=== PATIENT | female | born 1960 | race Caucasian/White ===

== ENCOUNTER 2018-09-17 14:16 | Emergency (ER) | payer BC, OTHER ==
[2018-09-17 14:34] VITALS: BP 138/86; PULSE 77; TEMP 97.9; BMI 30.9
--- NOTE | 2018-09-17 14:43 | PDOC ---
History of Present Illness - General History Source: Patient Exam Limitations: No Limitations - History of Present Illness Initial Comments: 09/17/18 14:55 The patient is a 57 year old female, with prior scaphoid injury in the past ( no surgery) and PMH with depression, who presents to the emergency department with right thumb pain that began 5 days ago. The patient states she rolled over a rock and landed on her right knee with her right hand out. The patient reports thumb pain progressively worsen making it difficult to sleep at night, no relief with Tylenol. The patient denies LOC, shoulder pain and knee pain. The patient denies numbness, bleeding or tingling. Allergies: NKA Past surgical history: abdominal and appendectomy Social history: Former smoker but drinks alcohol socially. PCP: Rakesh Huber <Wisam Riojas - Last Filed: 09/17/18 14:55> <Hellen Wesley - Last Filed: 09/17/18 15:26> - General Chief Complaint: Injury Stated Complaint: RIGHT THUMB PAIN Time Seen by Provider: 09/17/18 14:20 Past History <Wisam Riojas - Last Filed: 09/17/18 14:55> - Past Medical History COPD: No Psychiatric Problems: Yes (DEPRESSION) - Surgical History Abdominal Surgery: Yes Appendectomy: Yes (CHILDHOOD) - Suicide/Smoking/Psychosocial Hx Smoking History: Former smoker Have you smoked in the past 12 months: No Number of Cigarettes Smoked Daily: 0 Information on smoking cessation initiated: Yes Hx Alcohol Use: Yes (SOCIAL) Drug/Substance Use Hx: No Substance Use Type: None <Hellen Wesley - Last Filed: 09/17/18 15:26> - Past Medical History Allergies/Adverse Reactions: Allergies Allergy/AdvReac Type Severity Reaction Status Date / Time No Known Allergies Allergy Verified 09/17/18 14:17 Home Medications: Ambulatory Orders Acetaminophen [Tylenol Extra Strength] 1,000 mg PO TID PRN 09/17/18 Fluoxetine HCl [Prozac] 20 mg PO DAILY 09/17/18 Meloxicam 15 mg PO DAILY PRN 09/17/18 Review of Systems - Review of Systems Able to Perform ROS?: Yes Comments:: 09/17/18 14:55 GENERAL/CONSTITUTIONAL: No fever or chills. No weakness. HEAD, EYES, EARS, NOSE AND THROAT: No change in vision. No ear pain or discharge. No sore throat. CARDIOVASCULAR: No chest pain or shortness of breath. RESPIRATORY: No cough, wheezing, or hemoptysis. GASTROINTESTINAL: No nausea, vomiting, diarrhea or constipation. GENITOURINARY: No dysuria, frequency, or change in urination. MUSCULOSKELETAL:+Right thumb pain. No neck or back pain. SKIN: No rash NEUROLOGIC: No headache, vertigo, loss of consciousness, or change in strength/ sensation. ENDOCRINE: No increased thirst. No abnormal weight change. HEMATOLOGIC/LYMPHATIC: No anemia, easy bleeding, or history of blood clots. ALLERGIC/IMMUNOLOGIC: No hives or skin allergy. <Wisam Riojas - Last Filed: 09/17/18 14:55> *Physical Exam - Vital Signs Last Vital Signs Temp Pulse Resp BP Pulse Ox 97.9 F 77 16 138/86 95 09/17/18 14:17 09/17/18 14:17 09/17/18 14:17 09/17/18 14:17 09/17/18 14:17 - Physical Exam Comments: 09/17/18 14:57 GENERAL: Awake, alert, and fully oriented, in no acute distress HEAD: Atraumatic. No signs of trauma LUNGS: Breath sounds equal, clear to auscultation bilaterally. No wheezes, and no crackles HEART: Regular rate and rhythm, normal S1 and S2, no murmurs, rubs or gallops ABDOMEN: Soft, nontender, normoactive bowel sounds. No guarding, no rebound. No masses EXTREMITIES: +Right upper extremity tenderness snuffbox to the proximal thumb. Full of range of wrist and shoulder. No clubbing or cyanosis. No cords, erythema, or tenderness NEUROLOGICAL: Moving all 4 extremities. Normal speech SKIN: Warm, Dry, normal turgor, no rashes or lesions noted. <Wisam Riojas - Last Filed: 09/17/18 14:55> - Vital Signs Last Vital Signs Temp Pulse Resp BP Pulse Ox 97.9 F 77 16 138/86 95 09/17/18 14:17 09/17/18 14:17 09/17/18 14:17 09/17/18 14:17 09/17/18 14:17 <Hellen Wesley - Last Filed: 09/17/18 15:26> Medical Decision Making - Medical Decision Making 09/17/18 14:42 57 yo h/o pud, here s/p fall outstretched hand 5 days ago. c/o right thumb pain. states h;/o prior scaphoid injury no prior surgery. c/o persistant pain. difficulty with sleeping due to pain. no other injuries from fall on exam right hand with snuffbox tenderness. from at wrist. elbow and shoulder. plan xray wrist, likley spica splint and hand folowup. <Hellen Wesley - Last Filed: 09/17/18 15:26> *DC/Admit/Observation/Transfer - Attestations Scribe Attestion: 09/17/18 14:58 Documentation prepared by Wisam Riojas, acting as medical equipment sales for Hellen Wesley MD. <Wisam Riojas - Last Filed: 09/17/18 14:55> <Hellen Wesley - Last Filed: 09/17/18 15:26> Diagnosis at time of Disposition: Scaphoid fracture, Trapezium fracture - Discharge Dispostion Disposition: HOME Condition at time of disposition: Improved - Referrals Referrals: Rakesh Huber MD [Primary Care Provider] - Mahamed Zhou MD [Staff Physician] - - Patient Instructions Printed Discharge Instructions: Wrist Fracture Additional Instructions: you should wear wrist splint until you followup with your doctor you should follow up with a hand surgeon within one week. see referral information for dr. zhou. take tylenol 500 mg every 6 hrs as needed for pain. return for any problems or concerns. elevate hand to reduce swelling. your xray of hand shows a possible injury to the trapezium, although could be related to your old injury - Post Discharge Activity
[2018-09-17] MEDS ORDERED: ACETAMINOPHEN 325 MG TABLET (FP) PO ONE (14:56)
== END 2018-09-17 15:44 | disposition home or self-care (01) ==
LOC: FER 14:16
PROC: 2W3GX1Z Immobilization of Right Thumb using Splint (ICD-10-PCS; principal; 2018-09-17)
DX: S62.001A Unspecified fracture of navicular [scaphoid] bone of right wrist, initial encounter for closed fracture (principal); W18.39XA Other fall on same level, initial encounter; Y93.89 Activity, other specified; Y92.89 Other specified places as the place of occurrence of the external cause; S62.172A Displaced fracture of trapezium [larger multangular], left wrist, initial encounter for closed fracture
CPT/HCPCS: 73110-TC-RT-FY; 73130-TC-RT-FY; 99281-25